=== PATIENT | male | born 1970 | race Caucasian/White ===

== ENCOUNTER 2019-12-26 06:51 | Emergency (ER) | payer BC, OTHER ==
[~2019-12-26] VITALS: Ht 175.3 cm; Wt 95.3 kg
--- NOTE | 2019-12-26 06:53 | NUR ---
BIBRA 99 FOR C/O "I WAS DRIVING WHEN I GOT SHORT OF BREATH, AND I FELT CHEST TIGHTNESS AND TINGLING SENSATION ALL OVER". -CP OR SOB ON TRIAGE; PT TO BED 9, PT ON MONITOR, VSS, NOT IN ANY ACUTE DISTRESS, DR. AWAD AT BEDSIDE FOR EVAL, REPORT REC'D FROM RA.
[2019-12-26] MEDS ORDERED: FLUORESCEIN SODIUM OPHTH 1 EA STRIP ONE (07:05)
--- NOTE | 2019-12-26 07:08 | NUR ---
FLUORESCEIN STRIP AND TETRACAINE HANDED TO DR. AWAD
[2019-12-26] MEDS ORDERED: FLUORESCEIN SODIUM OPHTH 1 EA STRIP OP ONE (07:30)
[2019-12-26] MEDS ORDERED: TETRAcaine 5 ML BOTTLE LEFTEYE ONE (07:30)
[2019-12-26 07:59] VITALS: BP 124/71
--- NOTE | 2019-12-26 07:59 | NUR ---
Patient discharged to home in stable condition. Written and verbal after care instructions given. Patient verbalizes understanding of instruction.
== END 2019-12-26 08:00 | disposition home or self-care (01) ==
LOC: ER 06:56
DX: F41.9 Anxiety disorder, unspecified (principal); R07.89 Other chest pain; H57.12 Ocular pain, left eye; K21.9 Gastro-esophageal reflux disease without esophagitis; F31.9 Bipolar disorder, unspecified